=== PATIENT | male | born 1985 | race Caucasian/White ===

== ENCOUNTER 2018-01-31 13:13 | Emergency (ER) | payer OTHER ==
[~2018-01-31] VITALS: Ht 180.3 cm; Wt 86.2 kg
[~2018-01-31 13:13] MED LIST: DICLOFENAC SODI75 M2 PO; IBUPROFEN800 MG PO; MIRALAX17 GM PO; PERCOCET 325 MG1 TA2 PO; PROAIR HFA8.5 GM INH; ZOFRAN ODT4 MG PO
--- NOTE | 2018-01-31 14:15 | RADIOLOGY REPORT ---
EXAMINATION: XR CHEST CLINICAL INFORMATION: Chest pain. COMPARISON: Chest x-ray 04/18/2016. TECHNIQUE: Frontal and lateral views of the chest were obtained. FINDINGS: The lung burns are well expanded and appear clear bilaterally. The cardiac silhouette is normal. There are no pleural effusions or pneumothorax. The central pulmonary vasculature is normal. The hilar regions appear normal. There are no acute osseous findings. IMPRESSION: 1. There are no acute cardiopulmonary findings.
--- NOTE | 2018-01-31 14:42 | ED CARDIAC/CP/PALPITATIONS ---
History of Present Illness General Chief Complaint: Chest Pain Stated Complaint: CP Source: patient Exam Limitations: no limitations Vital Signs & Intake/Output Vital Signs & Intake/Output Vital Signs Date Time Temp Pulse Resp B/P B/P Pulse O2 O2 Flow FiO2 Mean Ox Delivery Rate 01/31 1928 98.7 86 18 122/74 97 Room Air 01/31 1734 99.1 78 18 116/78 98 Room Air 01/31 1317 98.2 93 15 158/104 96 Room Air Room Air ED Intake and Output 02/01 0000 01/31 1200 Intake Total Output Total Balance Patient 190 lb Weight Weight Reported by Patient Measurement Method Allergies Coded Allergies: Penicillins (UNKNOWN 01/31/18) Reconcile Medications Albuterol Sulfate (Proair Hfa) 90 MCG HFA.AER.AD 2-4 INH INH Q6P PRN TROUBLE BREATHING Diclofenac Sodium 75 MG TABLET.DR 1 TAB PO BID PRN PAIN Triage Note: PT TO ED FOR C/C OF SUDDEN ONSET OF 5/10 CHEST PAIN SHARP IN NATURE, INTERMITTENT, NON RADIATING. DENIES NUMBNESS OR TINGLING. REPORTS IT'S HARDER TO TAKE A DEEP BREATH, NO ACUTE DISTRESS NOTED IN TRIAGE. Triage Nurses Notes Reviewed? yes Onset: Abrupt Duration: hour(s): (2-3), changing over time, gone now, intermittent Timing: remote history Quality/Severity: moderate, sharp Location: left chest Radiation: shoulders (left) Activities at Onset: none Prior Chest Pain/Card Workup: echocardiography, stress test Nitro Today/Relief: no nitro taken today Aspirin Today: 325 mg x 1, provided at home HPI: 32-year-old male history of chronic constipation and indigestion presents for evaluation of chest pain. Patient reports several hours prior to arrival he began to notice some chest pain. Patient states he was sitting at rest when the pain started. The pain is located in the left side of his chest and radiates in the left shoulder. He states that the pain is intermittent lasting for only a few seconds coming and going. Nothing seems to bring the pain on make it better or worse. He describes the pain as sharp when it is present he rates as a 5 out of 10. It is associated with intermittent shortness of breath. Currently he is asymptomatic he states he last felt the pain while in the waiting room. It seems to come randomly. It does not seem to happen more on exertion. Patient reports she has had similar symptoms in the past and has been evaluated for chest pain at this emergency department on several other occasions. He is also seen an unknown ecmo specialist had a stress test and echocardiogram that according to him were negative within the last year. He does not drink smoke or use any drugs. He denies any history of premature cardiac disease. His father from a provoked pulmonary embolism. Patient denies any recent surgery recent trauma recent periods of immobilization hemoptysis lower extremity edema, nausea, vomiting, sweats, chills or any other associated symptoms. (John Sotomayor) Past History Travel History Traveled to [place] past 21 day No Medical History Any Pertinent Medical History? see below for history Neurological: NONE EENT: NONE Cardiovascular: NONE Respiratory: NONE Gastrointestinal: constipation, INDIGESTION Hepatic: NONE Renal: NONE Musculoskeletal: NONE Psychiatric: NONE Endocrine: NONE Blood Disorders: NONE Cancer(s): NONE INVOICING SPECIALIST/Reproductive: NONE Surgical History Surgical History: N Psychosocial History What is your primary language Nepali Tobacco Use: Never used ETOH Use: occasional use Illicit Drug Use: denies illicit drug use Family History Hx Contributory? No (John Sotomayor) Review of Systems Review of Systems Constitutional: Reports: no symptoms. EENTM: Reports: no symptoms. Respiratory: Reports: see HPI, short of breath. Cardiovascular: Reports: see HPI, chest pain. GI: Reports: no symptoms. Genitourinary: Reports: no symptoms. Musculoskeletal: Reports: no symptoms. Skin: Reports: no symptoms. Neurological/Psychological: Reports: no symptoms. Hematologic/Endocrine: Reports: no symptoms. Immunologic/Allergic: Reports: no symptoms. All Other Systems: Reviewed and Negative (John Sotomayor) Physical Exam Physical Exam General Appearance: well developed/nourished, no apparent distress, alert, awake Head: atraumatic, normal appearance Eyes: Bilateral: normal appearance, PERRL, EOMI. Ears, Nose, Throat: normal pharynx, normal ENT inspection, hearing grossly normal Neck: normal inspection, supple, full range of motion Respiratory: normal breath sounds, chest non-tender, no respiratory distress, lungs clear Cardiovascular: regular rate/rhythm, normal peripheral pulses Peripheral Pulses: 2+ radial (R), 2+ radial (L) Gastrointestinal: normal bowel sounds, soft, non-tender, no organomegaly Back: normal inspection, normal range of motion, no vertebral tenderness Extremities: normal inspection, normal range of motion, no edema Neurologic/Psych: no motor/sensory deficits, awake, alert, oriented x 3, normal gait, normal mood/affect Skin: intact, normal color, warm/dry Lymphatic: no anterior cervical shani Core Measures ACS in differential dx? Yes CVA/TIA Diagnosis No Sepsis Present: No Sepsis Focused Exam Completed? No (John Sotomayor) Progress Differential Diagnosis: AMI, aortic dissection, atrial fibrillation, CHF/pulm edema, musculoskeletal pain, myocarditis, pancreatitis, pericarditis, pneumonia, pneumothorax, PSVT, pulmonary embolism, PUD/GERD, PVCs/PACs, rib fracture, unstable angina, V-fib/V-Tach, WPW syndrome Plan of Care: Orders Procedure Date/time Status TROPONIN LEVEL 01/31 1815 Complete EKG 01/31 181 Active Add-on Test (ER Only) 01/31 1449 Active TROPONIN LEVEL 01/31 1332 Complete PHOSPHORUS 01/31 1332 Complete MAGNESIUM 01/31 1332 Complete LIPASE 01/31 1332 Complete D-DIMER 01/31 1332 Complete COMPREHENSIVE METABOLIC PANEL 01/31 1332 Complete CBC WITHOUT DIFFERENTIAL 01/31 1332 Complete EKG 01/31 1314 Active Laboratory Tests 01/31/18 1815: Troponin I < 0.01 01/31/18 1513: Anion Gap 8, Estimated GFR > 60, BUN/Creatinine Ratio 16.3, Glucose 93, Calcium 9.5, Phosphorus 3.3, Magnesium 2.0, Total Bilirubin 0.7, AST 20, ALT 33, Alkaline Phosphatase 50, Troponin I < 0.01, Total Protein 7.7, Albumin 4.7, Globulin 3.0, Albumin/Globulin Ratio 1.6, Lipase 82, D-Dimer High Sensitivty < 200, CBC w Diff NO MAN DIFF REQ, RBC 5.83, MCV 86.2, MCH 29.0, MCHC 33.7, RDW 12.6, MPV 7.0 L, Gran % 72.6, Lymphocytes % 19.7 L, Monocytes % 4.9, Eosinophils % 2.2, Basophils % 0.6, Absolute Granulocytes 5.8, Absolute Lymphocytes 1.6, Absolute Monocytes 0.4, Absolute Eosinophils 0.2, Absolute Basophils 0 Patient is here for evaluation of chest pain. The pain started several hours prior to arrival is been intermittent located in the left side of his chest described as sharp. Patient reports he has had similar symptoms in the past and has been evaluated by cardiology and everything has been normal according to the patient. He does not improve with ecmo specialist he saw on initial evaluation he reports he is asymptomatic he last felt the pain while in the waiting room. Initial EKG is unremarkable. Labs are ordered chest x-ray ordered. Blood work is unremarkable including a negative d-dimer negative troponin. Patient reports he has had another episode of pain while at rest in the stretcher it lasted for only a few seconds. Case was discussed with Dr. Reed who feels the patient can be discharged for an outpatient workup if he gets a unchanged EKG and troponin. The pain does not seem to get worse or come on during exertion patient is young otherwise healthy he has no family history of heart disease. Pain only last for a few seconds and then goes away completely seemingly randomly. Repeat EKG troponin is negative unchanged patient is asymptomatic on reevaluation. Patient will be discharged with instructions to follow up with his ecmo specialist as soon as possible. Discussed return precautions in detail patient agrees the plan Diagnostic Imaging: Viewed by Me: Radiology Read. Discussed w/RAD: Radiology Read. CXR Impression: PATIENT: ZULAY MARTIN PRESENT AGE: 32 PATIENT ACCOUNT NO: [id number] : 83 LOCATION: [facility] ORDERING PHYSICIAN: Elin CRAIG SERVICE DATE: 01/31/18 EXAM TYPE: RAD - XRY-CHEST XRAY, TWO VIEWS EXAMINATION: XR CHEST CLINICAL INFORMATION: Chest pain. COMPARISON: Chest x-ray 04/18/2016. TECHNIQUE: Frontal and lateral views of the chest were obtained. FINDINGS: The lung burns are well expanded and appear clear bilaterally. The cardiac silhouette is normal. There are no pleural effusions or pneumothorax. The central pulmonary vasculature is normal. The hilar regions appear normal. There are no acute osseous findings. IMPRESSION: 1. There are no acute cardiopulmonary findings. DICTATED BY: Serafin Rosas MD DATE/ TIME DICTATED:01/31/181408 PASSPORT SUPPORT ASSOCIATE:AMANDEEP DATE/TIME TRANSCRIBED: 01/31/181408 CONFIDENTIAL, DO NOT COPY WITHOUT APPROPRIATE AUTHORIZATION. < Electronically signed in Other Vendor System> SIGNED BY: Sreafin Rosas MD [id number] Initial ED EKG: normal sinus rhythm, no ST T wave changes Prior EKG: unchanged Repeat EKG: unchanged (John Sotomayor) Departure Departure Disposition: HOME OR SELF CARE Condition: Stable Clinical Impression Primary Impression: Atypical chest pain Referrals: Radha FOX,Kate Laws III (PCP/Family) Additional Instructions: FOLLOW UP WITH YOUR CONSOLE OPERATOR SOON POSSIBLE. MONITOR YOUR SYMPTOMS RETURN WITH ANY CONCERNS. Departure Forms: Customer Survey General Discharge Information (John Sotomayor) PA/ENVIRONMENTAL INTERN Co-Sign Statement Statement: ED Attending supervision documentation- [] I saw and evaluated the patient. I have also reviewed all the pertinent lab results and diagnostic results. I agree with the findings and the plan of care as documented in the PA's/ENVIRONMENTAL INTERN's documentation. [x] I have reviewed the ED Record and agree with the PA's/ENVIRONMENTAL INTERN's documentation. [] Additions or exceptions (if any) to the PAs/ENVIRONMENTAL INTERN's note and plan are summarized below: [] (Oliva FOX,[facility]) Critical Care Note Critical Care Note Critical Care Time: non-applicable (John Sotomayor)
[2018-01-31 15:53] LABS: ABSOLUTE BASOPHIL COUNT 0 /CUMM (0.0-0.2); ABSOLUTE EOSINOPHIL COUNT 0.2 /CUMM (0.0-0.7); ABSOLUTE GRANULOCYTE CT 5.8 /CUMM (1.4-6.5); ABSOLUTE LYMPH COUNT 1.6 /CUMM (1.2-3.4); ABSOLUTE MONOCYTE COUNT 0.4 /CUMM (0.10-0.60); BASOPHIL % 0.6 % (0.0-2.0); EOSINOPHIL % 2.2 % (0-5); GRANULOCYTE % 72.6 % (42.2-75.2); HEMATOCRIT 50.3 % (42-52); MEAN CORPUSCULAR HGB CONC 33.7 G/DL (33.0-37.0); MEAN CORPUSCULAR VOLUME 86.2 FL (80.0-94.0); PLATELET COUNT 336 /CUMM (130-400); RBC DISTRIBUTION WIDTH 12.6 % (11.5-14.5); RED BLOOD CELL CT 5.83 /CUMM (4.70-6.10)
[2018-01-31 19:28] VITALS: BP 122/74
== END 2018-01-31 19:43 ==
LOC: ERH 13:13
PROVIDERS: Physician Assistant
DX: R07.89 Other chest pain (principal); R06.02 Shortness of breath
CPT/HCPCS: 71046; 93005; 93010